=== PATIENT | female | born 1980 | race Caucasian/White ===

== ENCOUNTER → 2021-05-29 09:19 | Outpatient (CLI) | payer OTHER, SELFPAY ==
--- NOTE | 2021-05-29 09:26 | RAD_ITS ---
STUDY: X-RAY - ABDOMEN/PELVIS REASON FOR EXAM: Female, 40 years old. KUB- KIDNEY STONES TECHNIQUE: KUB COMPARISON: None. FINDINGS: Normal visualized lung bases. There is an unremarkable bowel gas pattern. There is no demonstrated free abdominal air. The visualized liver, spleen and kidneys are grossly normal in size and morphology. There is a large calcification in left upper quadrant consistent with renal stone. There is a small 1 the right upper quadrant possibly within the kidney or proximal ureter. There are also multiple pelvic calcifications bilaterally likely representing phleboliths although distal ureteral calculus cannot entirely excluded Postoperative changes in the pelvis likely due to prior tubal ligation. Lumbar spine demonstrates mild scoliosis and degenerative change. RAD/Abdomen Single View IMPRESSION: Left renal calculus. Question right renal or proximal ureteral calculus. If patient is experiencing renal colic ultrasound or CT recommended for further evaluation Electronically Signed: Charly Fletcher MD at 16:51 EDT , Service support ,
== END ==
PROVIDERS: PCP Family Medicine; Referring Provider Urology; Visit Provider Urology
DX: N20.0 Calculus of kidney (principal)
CPT/HCPCS: 74018

== ENCOUNTER 2021-06-17 11:52 | Day surgery (SDC) | payer OTHER, SELFPAY ==
[2021-06-17] VITALS (14 sets, daily range): BP systolic 114–146; BP diastolic 67–87; PULSE 64–83; RESP 14–16; TEMP 36–36.6; O2SAT 99–100; BMI 31.4
[2021-06-17] MEDS: Lactated Ringers 1,000 ML 15 ML IV (12:00)
[2021-06-17 12:39] LABS: Hematocrit 36.4 % (37-47); Mean Corpuscular Hgb 29.6 pg (27.0-32.0); Mean Corpuscular Volume 89.7 fL (81-99); Platelet Count 168 K/mm3 (150-450); RBC Distribution Width SD 42.7 fl (35.1-43.9); Red Blood Count 4.06 M/mm3 (4.2-5.4)
[2021-06-17 12:41] LABS: Internal QC Validated? YES +Cl - CLEAR BKGD; Pregnancy, Urine Negative Negative
[2021-06-17 12:51] LABS: Anion Gap 4 (5-15); BUN 9 mg/dL (7-18); BUN/Creat Ratio 11.9 RATIO (10-20); Calcium,Total 9.1 mg/dL (8.5-10.1); Chloride 111 mmol/L (98-107); Creatinine, Serum 0.76 mg/dL (0.55-1.02); EST Glomerular Filtration Rate 90 mL/min (>60); Est Glom Filt Rate - Afr Amer 109 mL/min (>60); Estimated Creatinine Clearance 93.04 ml/min; Glucose 83 mg/dL (74-106); Potassium 3.4 mmol/L (3.5-5.1); Sodium Level 140 mmol/L (136-145)
--- NOTE | 2021-06-17 13:40 | PCM.OPRPT ---
Problems Associated Problem List Diagnoses (1) Left renal stone: (2) Flank pain: Report of Operation Date of Procedure: 06/17/21 Pre-Operative Diagnosis: left renal stone, flank pain Post-Operative Diagnosis: same Surgery/Procedure Performed:: Cystoscopy, left ureteral stent insertion, left renal extracorporal shockwave lithotripsy Surgeon: Graciela Lawton Type of Anesthesia: General Specimen's removed: none Description of Procedure: The patient is a 40-year-old female has been having flank pain for some time. She underwent imaging and a large left renal stone was identified. She now presents for management with cystoscopy, ureteral stent insertion, and left renal extracorporal shockwave lithotripsy. Informed consent was obtained. The patient was taken the operating room and placed on the operating room table. Anesthesia monitored the head, neck, airway, IV access and vital signs throughout the case. Once anesthesia was appropriate ministered the patient was placed into dorsal lithotomy position was prepped and draped in usual sterile fashion. The cystoscope was inserted through the urethra under direct visualization into the urinary bladder. The bladder mucosa was visualized in its entirety and found to be without evidence of mass, erythema, lesion or foreign body. At this time the left ureteral orifice was intubated with a 0.035 Glidewire and access was obtained to the left renal pelvis. A 6 Portuguese 26 cm double-J stent was then placed with good curling achieved in the renal pelvis as well as the urinary bladder. Her bladder was then emptied, and the cystoscope was removed. The patient was positioned with the lithotripter and fluoroscopy. The stone was clearly identified and 3000 shocks were applied systematically. The stone appeared to be well fragmented at the conclusion of the case. The patient was then awakened and taken to the recovery room in good condition. There were no complications during this procedure. Grafts/Implants Used: 6 x 26 JJ stent Complications none Admit VTE Documentation VTE Present on Admission: Yes VTE Mechan Device Prophylaxis: SCD's VTE Pharm Prophylaxis ordered?: No Reason prophylaxis not ordered:: Treatment Not Indicated
--- NOTE | 2021-06-17 13:48 | PCM.DC ---
Discharge Instructions Diet Discharge Diet: No restrictions Activity Discharge Activity: Return to Normal Activity May resume sexual activity in: No Restrictions Dressing / Incision Call your doctor if you observe: Fever of 101 or Higher, Inability to urinate, Inability to have a bowel movement and Uncontrolled pain Follow Up Care Please Follow Up With: Graciela Lawton MD When: In the office in 2 to 3 weeks with a KUB first. Call for appointment Test Results: Test results from this visit will be discussed in further detail at your follow-up appointment, if applicable. Discharge Plan Admission Attending Provider: Graciela Lawton Primary Care Provider: Ron Mulligan Discharge Orders/Prescriptions Prescriptions: New oxycodone-acetaminophen [oxycodone-acetaminophen] 1 TABLET tablet 2 tab PO Q8H PRN PRN (Reason: Pain) 7 Days Qty: 20 RF: 0 cephalexin [cephalexin] 500 MG capsule 500 mg PO Q12 3 Days Qty: 6 RF: 0 phenazopyridine [Pyridium] 200 MG tablet 200 mg PO TID PRN PRN (Reason: Bladder Spasms) 7 Days Qty: 30 RF: 0 Continued lamotrigine [Lamictal] 150 mg Tablet 150 mg PO DAILY RF: 0 lamotrigine [Lamictal] 150 mg Tablet 300 mg PO QHS RF: 0 zonisamide 100 mg Capsule 100 mg PO QHS RF: 0 gabapentin [Neurontin] 300 mg Capsule 300 mg PO BID RF: 0 gabapentin [Neurontin] 300 mg Capsule 900 mg PO QHS RF: 0 folic acid 1 mg Tablet 1 mg PO DAILY RF: 0 topiramate 50 mg Tablet 50 mg PO BID RF: 0 Referrals / Follow Up: Ron Mulligan MD [Primary Care Provider] - Disposition Disposition (needs filled in before D/C Order can be placed): Home, Self Care
[2021-06-17] MEDS: Cefazolin 2 GM in 0.9% Normal Saline 100 ML IV (13:55)
== END 2021-06-17 19:00 | disposition home or self-care (01) ==
LOC: SDC 11:55 → AC 11:55
PROVIDERS: Anesthesiology; PCP Family Medicine; Referring Provider Urology; Visit Provider Urology
PROC: (CPT 50590; principal; 2021-06-17 14:10)
DX: N20.0 Calculus of kidney (principal); E66.9 Obesity, unspecified; Z68.36 Body mass index [BMI] 36.0-36.9, adult; G43.909 Migraine, unspecified, not intractable, without status migrainosus; G40.909 Epilepsy, unspecified, not intractable, without status epilepticus; Z87.442 Personal history of urinary calculi; Z79.899 Other long term (current) drug therapy
CPT/HCPCS: 00873; 50590; 52332; 80048; 81025; 85027; 87426; J7120; C2617; J2405

== ENCOUNTER → 2021-07-03 15:16 | Outpatient (CLI) | payer OTHER, SELFPAY ==
--- NOTE | 2021-07-03 15:19 | RAD_ITS ---
STUDY: X-RAY - ABDOMEN/PELVIS REASON FOR EXAM: Female, 40 years old. KIDNEY CALC TECHNIQUE: 2 frontal images of the abdomen were obtained. COMPARISON: 05/29/2021 FINDINGS: Normal visualized lung bases. There is an unremarkable bowel gas pattern. There is no demonstrated free abdominal air. There is a new left ureteral catheter in place. There are calcific densities within the expected region of the left kidney measuring up to 12.3 mm. There are calcified phleboliths in the pelvis. There are tubal ligation clips in place. There is a stable rounded density projecting over the lower pelvis may reflect a vaginal ring. Normal visualized osseous structures. RAD/Abdomen Single View IMPRESSION: Left renal calculi measuring up to 12.3 mm. Electronically Signed: Deneen Galvez MD at 16:35 EST Tel , Service support ,
== END ==
PROVIDERS: PCP Family Medicine; Referring Provider Urology; Visit Provider Urology
DX: N20.0 Calculus of kidney (principal)
CPT/HCPCS: 74018

== ENCOUNTER → 2021-07-23 15:41 | Outpatient (CLI) | payer OTHER, SELFPAY ==
--- NOTE | 2021-07-23 15:45 | RAD_ITS ---
EXAM: XR ABDOMEN, 1 VIEW CLINICAL INDICATION: KUB- KIDNEY STONES TECHNIQUE: Frontal supine view of the abdomen/pelvis. This report was created using [employer] report generation technology. COMPARISON: 07/03/2021 exam. FINDINGS: LOWER THORAX: Lung bases are clear. GASTROINTESTINAL TRACT: Normal bowel gas pattern. Non-obstructive. No bowel or stomach distention. ORGANS: Unremarkable as visualized. No organomegaly. No abnormal calcifications. BONES/JOINTS: No suspicious lytic or sclerotic lesions of bone. SOFT TISSUES: No acute pathology. VASCULATURE: Multiple phleboliths in the pelvis pelvis. TUBES, LINES AND DEVICES: Unchanged left ureteral stent this is incompletely imaged. OTHER FINDINGS: Bilateral tubal ligation. RAD/Abdomen Single View IMPRESSION: 1. No acute disease or bowel obstruction. 2. Stool and gas within colon. 3. Left double-J ureteral stent in place. Electronically Signed: Mike Meza MD at 0:41 EST Tel , Service support ,
== END ==
PROVIDERS: PCP Family Medicine; Referring Provider Urology; Visit Provider Urology
DX: N20.0 Calculus of kidney (principal)
CPT/HCPCS: 74018

== ENCOUNTER 2021-08-06 10:56 | Inpatient (IN) | payer OTHER, SELFPAY ==
[2021-08-06 10:57] VITALS: BP 130/65; PULSE 69; RESP 16; TEMP 36; O2SAT 100; BMI 34.3
--- NOTE | 2021-08-06 11:57 | EDS_ITS ---
HPI History of Present Illness Chief Complaint: Flank Pain Narrative Narrative: Patient presents to the emergency department with abdominal pain and pain. She has a ureteral stent for the last few weeks and it is becoming more painful. She called her urologist who told her to come to the ED. No fever or chills. She denies any new urinary symptoms. [facility] Medical History (Updated 08/06/21 @ 12:[address] Prince Garcia MD) Flank pain Left renal stone Non-smoker Seizures Wears glasses Home Medications folic acid 1 mg PO DAILY 05/31/21 [History Last Taken Unknown] gabapentin [Neurontin] 300 mg PO BID 05/31/21 [History Last Taken 06/17/21] gabapentin [Neurontin] 900 mg PO QHS 05/31/21 [History Last Taken Unknown] lamotrigine [Lamictal] 150 mg PO DAILY 05/31/21 [History Last Taken 06/17/21] lamotrigine [Lamictal] 300 mg PO QHS 05/31/21 [History Last Taken Unknown] topiramate 50 mg PO BID 05/31/21 [History Last Taken 06/17/21] zonisamide 100 mg PO QHS 05/31/21 [History Last Taken Unknown] cephalexin 500 mg PO Q12 3 Days #6 capsule 06/17/21 [Rx Last Taken Unknown] oxycodone-acetaminophen 2 tab PO Q8H PRN PRN 7 Days #20 tab 06/17/21 [Rx Last Taken Unknown] phenazopyridine [Pyridium] 200 mg PO TID PRN PRN 7 Days #30 tab 06/17/21 [Rx Last Taken Unknown] Allergy/AdvReac Type Severity Reaction Status Date / Time No Known Allergies Allergy Verified 08/06/21 10:59 Surgical History (System 06/03/21 @ 13:51 by Martinez Wei) History of Hx of brain surgery Social History (System 06/03/21 @ 13:51 by Martinez Wei) Smoking Status: Never smoker ROS ROS ED ROS Narrative Past medical history: Reviewed Medications: Reviewed Social history: Noncontributory Review of systems: All systems negative except as indicated General: No fever Eyes: No visual changes ENT: No upper airway congestion, normal voice Neck: No neck pain Cardiovascular: No chest pain Respiratory: No shortness of breath or cough Gastrointestinal: As in HPI Genitourinary: As in HPI Musculoskeletal: Denies myalgias no difficulty with ambulation Skin: No rash Neurological: No memory loss, confusion or any focal weakness Psych: No recent behavioral changes Hematologic: No easy bleeding or easy bruising EXAM Physical Exam Narrative Exam Narrative: Physical exam General: Well nourished, Well developed, No Acute Distress Head: Normocephalic, Atraumatic Neck: Supple, Nontender, No lymphadenopathy Cardiovascular: Regular rate, Regular rhythm Respiratory: No distress, CTA bilaterally Abdomen: Soft, some suprapubic pain : Deferred Back: Nontender, Normal Inspection. Negative for: CVA tenderness Extremities: Nontender, No edema Skin: Normal color, No rash Neurological: Alert, Normal Strength, Normal Sensation Psychological: Normal affect Const Vital Signs: 08/06/21 10:57 Temperature 96.8 F L Temperature Source Temporal Pulse Rate 69 Respiratory Rate 16 Blood Pressure 130/65 H Blood Pressure Mean 86 Pulse Ox 100 Oxygen Delivery Method Room Air MDM MDM MDM Narrative Medical decision making narrative: Patient's work-up, she is given IV fluids. I discussed with urology for admission. Discharge Plan Triage Chief Complaint: Flank Pain ED Provider: Prince Garcia Dx/Rx/DC Orders Clinical Impression: Left renal stone, Flank pain Prescriptions: No Action lamotrigine [Lamictal] 150 mg Tablet 150 mg PO DAILY RF: 0 lamotrigine [Lamictal] 150 mg Tablet 300 mg PO QHS RF: 0 zonisamide 100 mg Capsule 100 mg PO QHS RF: 0 gabapentin [Neurontin] 300 mg Capsule 300 mg PO BID RF: 0 gabapentin [Neurontin] 300 mg Capsule 900 mg PO QHS RF: 0 folic acid 1 mg Tablet 1 mg PO DAILY RF: 0 topiramate 50 mg Tablet 50 mg PO BID RF: 0 oxycodone-acetaminophen [oxycodone-acetaminophen] 1 TABLET tablet 2 tab PO Q8H PRN PRN (Reason: Pain) 7 Days Qty: 20 RF: 0 cephalexin [cephalexin] 500 MG capsule 500 mg PO Q12 3 Days Qty: 6 RF: 0 phenazopyridine [Pyridium] 200 MG tablet 200 mg PO TID PRN PRN (Reason: Bladder Spasms) 7 Days Qty: 30 RF: 0 Primary Care Provider: Ron Mulligan Referrals: Ron Mulligan MD [Primary Care Provider] - Disposition Disposition: Acute Care Hospital [facility]
[2021-08-06 12:19] LABS: Bacteria 0 SEEN /hpf (None Seen); Mucous, Urine 0 SEEN /hpf (<or=2+)
[2021-08-06 12:23] LABS: Color, Urine Amber (Yellow); Glucose, Dipstick Normal (Normal); Ketone-Dipstick 15 mg/dl (Negative); Leukocyte Esterase-Dipstick 100 /ul (Negative); Nitrite-Dipstick Negative (Negative); Occult Blood-Urine 250 /ul (Negative); Protein-Dipstick 100 mg/dl (Negative); Specific Gravity, Urine 1.015 (1.002-1.030); Urine Bilirubin Dipstick Negative (Negative); Urine Clarity Cloudy (Clear); Urine Urobilinogen Normal (Normal)
[2021-08-06] MEDS: 0.9% Normal Saline 1,000 ML 1000 ML IV (12:27)
[2021-08-06 12:31] LABS: Absolute Lymphocyte Count 2.21 X10^3/uL (0.83-4.51); Absolute Neutrophil Count 4.4 X10^3/uL (2.0-7.7); Basophil# 0.07 X10^3/uL; Eosinophil# 0.15 X10^3/uL; Eosinophils% 2.1 % (0-5); Hematocrit 36.6 % (37-47); Hemoglobin 11.8 g/dL (12.0-15.0); Lymphocyte # 2.21 X10^3/ul (0.83-4.51); Lymphocyte % 30.3 % (19-41); Mean Corp Hgb Conc 32.2 g/dL (32-36); Mean Corpuscular Hgb 29.6 pg (27.0-32.0); Mean Corpuscular Volume 91.7 fL (81-99); Mean Platelet Vol. 10.6 fl (6.2-12.0); Monocyte# 0.45 X10^3/uL; Monocyte% 6.2 % (0-10); NRBC Flagged by Analyzer 0 % (0-5); Neutrophil # 4.39 X10^3/uL (2.7-7.7); Platelet Count 228 K/mm3 (150-450); RBC Distribution Width CV 13.2 % (11.6-14.6); Red Blood Count 3.99 M/mm3 (4.2-5.4); White Blood Count 7.3 K/mm3 (4.4-11.0)
[2021-08-06 12:32] LABS: Red Blood Cells-Urine 50-100 SEEN /hpf (0-5); Squamous Epithelial Cells - UA 0-5 SEEN /hpf (5-10); White Blood Cells 10-25 SEEN /hpf (0-5)
[2021-08-06 12:45] LABS: ALB/GLOB Ratio 1.1 RATIO (0.9-2.4); AST(SGOT) 19 U/L (15-37); Alanine Aminotransfer ALT/SGPT 45 U/L (13-56); Albumin, Serum 3.9 g/dL (3.2-5.0); Alkaline Phosphatase 63 U/L (45-117); Anion Gap 5 (5-15); BUN 10 mg/dL (7-18); BUN/Creat Ratio 13.6 RATIO (10-20); Calcium,Total 8.6 mg/dL (8.5-10.1); Chloride 112 mmol/L (98-107); Creatinine, Serum 0.73 mg/dL (0.55-1.02); EST Glomerular Filtration Rate 93 mL/min (>60); Est Glom Filt Rate - Afr Amer 113 mL/min (>60); Estimated Creatinine Clearance 89.35 ml/min; Globulin 3.6 g/dL (2.2-4.2); Glucose 84 mg/dL (74-106); Potassium 3.4 mmol/L (3.5-5.1); Protein, Total 7.5 g/dL (6.4-8.2); Sodium Level 143 mmol/L (136-145)
--- NOTE | 2021-08-06 13:15 | NURSING ---
MED SURG OBS KAYLI UTI, KIDNEY STONE
[2021-08-06] MEDS: Ceftriaxone 1 GM/50 ML BAG IV (13:37)
[2021-08-06 13:41] VITALS: BP 114/79; PULSE 71; RESP 18; TEMP 36.4; O2SAT 95
[2021-08-06 15:09] VITALS: BMI 30.7
[2021-08-06] MEDS: Lactated Ringers 1,000 ML 100 ML IV (15:29)
[2021-08-06] MEDS: Ketorolac 30 MG/ML Syringe IV ×2 (15:31→22:27)
--- NOTE | 2021-08-06 18:13 | PCM.HP.STD ---
HPI - General General Date of Admission: 08/06/21 HPI Narrative RICHARD SUÁREZ, is a 40 F who presents with uncontrolled lower abdominal and left flank pain associated with her left ureteral stent and renal stones. She is in the process of being scheduled for surgical intervention and could not make it to the surgery date. Not eating or drinking much at home. Denies fever, chills, vomiting. Reports that her most significant symptoms are uncontrolled left lower abdominal pain. She feels that she cannot function at home secondary to the severity of her pain. She has also had gross hematuria and bladder pain. She denies dysuria. Voiding small amounts frequently. [facility] Medical History Flank pain Kidney stones Left renal stone Non-smoker Seizures Wears glasses Home Medications folic acid 1 mg PO DAILY 05/31/21 [History Last Taken 08/06/21] gabapentin [Neurontin] 300 mg PO DAILY 05/31/21 [History Last Taken 08/05/21] gabapentin [Neurontin] 900 mg PO QHS 05/31/21 [History Last Taken 08/05/21] lamotrigine [Lamictal] 150 mg PO DAILY 05/31/21 [History Last Taken 08/06/21] lamotrigine [Lamictal] 300 mg PO QHS 05/31/21 [History Last Taken 08/05/21] topiramate 50 mg PO BID 05/31/21 [History Last Taken 08/06/21] zonisamide 100 mg PO QHS 05/31/21 [History Last Taken 08/05/21] oxycodone-acetaminophen 2 tab PO Q8H PRN PRN 7 Days #20 tab 06/17/21 [Rx Last Taken 08/05/21] gabapentin 600 mg PO DAILY 08/06/21 [History Last Taken 08/06/21] Allergy/AdvReac Type Severity Reaction Status Date / Time No Known Allergies Allergy Verified 08/06/21 10:59 Surgical History History of Hx of brain surgery Social History Smoking Status: Never smoker ROS ROS Narrative Reports feeling much better now that her pain is controlled. Still having bladder pressure and bladder pain. Constitutional Constitutional: Reports poor appetite; Denies chills, fever(s) or night sweats Eyes Eyes: Reports systems reviewed and no addt'l complaints, except as documented ENT HEENT: Reports systems reviewed and no addt'l complaints, except as documented Cardiovascular Cardiovascular: Reports systems reviewed and no addt'l complaints, except as documented Respiratory/Chest Respiratory/Chest: Reports systems reviewed and no addt'l complaints, except as documented Gastrointestinal Gastrointestinal: Reports abdominal pain, cramping and nausea; Denies taste impaired or vomiting Genitourinary Genitourinary: Reports abdominal discomfort, flank pain, hematuria, low back pain, polyuria, urinary frequency and urinary urgency; Denies burning urination or dysuria Musculoskeletal Musculoskeletal: Reports systems reviewed and no addt'l complaints, except as documented Integumentary Integumentary: Reports systems reviewed and no addt'l complaints, except as documented Neurologic Neurologic: Reports systems reviewed and no addt'l complaints, except as documented and seizures Psychiatric Psychiatric: Reports systems reviewed and no addt'l complaints, except as documented Endocrine Endocrinology: Reports systems reviewed and no addt'l complaints, except as documented Hematologic/Lymphatic Hematologic/Lymphatic: Reports systems reviewed and no addt'l complaints, except as documented Allergic/Immunologic Allergic/Immunologic: Reports systems reviewed and no addt'l complaints, except as documented Vital Signs Vital Signs Vital Signs: 08/06/21 10:57 08/06/21 12:26 08/06/21 13:41 Temperature 96.8 F L 97.5 F L Temperature Source Temporal Oral Pulse Rate 69 71 Respiratory Rate 16 18 Respiratory Pattern Normal Blood Pressure 130/65 H 114/79 Blood Pressure Mean 86 90 Pulse Ox 100 95 Oxygen Delivery Method Room Air Room Air 08/06/21 15:41 Temperature Temperature Source Pulse Rate Respiratory Rate Respiratory Pattern Blood Pressure Blood Pressure Mean Pulse Ox Oxygen Delivery Method Room Air Weight Weight: 83.6 kg Body Mass Index (BMI) 30.7 Physical Exam Narrative She is tired in appearance, taking extra time to think about her answers, consistent with narcotic administration. Const alert, oriented x3, no apparent distress and healthy appearing General Appearance: cooperative, comfortable and well kempt Orientation / Consciousness: awake and oriented to person Exam Limitations: no limitations HEENT normocephalic, head/scalp atraumatic, hearing grossly normal bilaterally, external ears normal, external nose normal and moist oral mucous membranes Face and Sinus: face symmetric Mouth: lips normal and tongue normal Eyes General Eye: normal appearance of both eyes Neck supple General: trachea midline Chest inspection of chest normal Chest: symmetrical chest wall rise Resp normal respiratory effort, normal air movement and no retractions Effort and Inspection: able to speak in complete sentences and symmetric chest movement Cardio regular rate and regular rhythm GI soft to palpation and non-distended Palpation: soft and tender LLQ and suprapubic Bladder / Kidney Exam: CVA tenderness left Back/Spine General Back: CVA tenderness left Extremity normal to inspection Skin no rashes or lesions noted, no wounds, skin turgor normal, no jaundice, no petechiae and no mottling Neuro oriented x3, CN's II-XII intact bilaterally and moves all extremities Psych mental status grossly normal, thought process normal, cooperative and affect normal Results Medical Records Data Medical Nutrition Assessment Dietitian: Malnutrition Criteria Met Start: 08/06/21 17:20 Freq: Status: Active Protocol: Document 08/06/21 17:20 RMA (Rec: 08/06/21 17:20 RMA [id number]) Nutrition Malnutrition Evidence of Malnutrition Exists Yes Malnutrition (severe): Acute Illness/Injury Evidenced By Suboptimal Energy Intake ( Severe),Weight Loss (Severe) Clinical Problem Acute Disease or Injury Related Malnutrition Etiology Severe protein/calorie malnutrition in the context of acute illness related to decreased appetite/pain and inadequate oral intake Signs/Symptoms as evidenced by ~5% wt loss x past 1 month and inadequate oral intake meeting less than 50-75% estimated nutrition needs Status Active Problem Recommendation Dietitian Recommendations/Changes Continue regular diet; will add extra protein/meat with meals since pt refusing ONS at this time. ONS as needed if weight declines and/or PO established inadequate at meals. Lab / Micro Data Result Diagrams: 08/06/21 12:23 08/06/21 12:23 Labs: Laboratory Results - last 24 hr 08/06/21 12:14: Urine Color Jeanette, Urine Clarity Cloudy, Urine pH 7.0, Ur Specific [place] 1.015, Urine Protein 100 H, Urine Glucose (UA) Normal, Urine Ketones 15 H, Urine Occult Blood 250 H, Urine Nitrite Negative, Urine Bilirubin Negative, Urine Urobilinogen Normal, Ur Leukocyte Esterase 100 H, Urine RBC 50-100 SEEN, Urine WBC 10-25 SEEN, Ur Squamous Epith Cells 0-5 SEEN, Urine Bacteria 0 SEEN, Urine Mucus 0 SEEN 08/06/21 12:23: WBC 7.3, RBC 3.99 L, Hgb 11.8 L, Hct 36.6 L, MCV 91.7, MCH 29.6, MCHC 32.2, RDW Std Deviation 44.0 H, RDW Coeff of Tena 13.2, Plt Count 228, MPV 10.6, Immature Gran % (Auto) 0.400, Neut % (Auto) 60.0, Lymph % (Auto) 30.3, Fergus % (Auto) 6.2, Eos % (Auto) 2.1, Baso % (Auto) 1.0, Absolute Neuts (auto) 4.4, Absolute Lymphs (auto) 2.21, Nucleated RBC % 0 08/06/21 12:23: Sodium 143, Potassium 3.4 L, Chloride 112 H, Carbon Dioxide 26.0, Anion Gap 5, BUN 10, Creatinine 0.73, Estim Creat Clear Calc 89.35, Est GFR (MDRD) Af Amer 113, Est GFR (MDRD) Non-Af 93, BUN/Creatinine Ratio 13.6, Glucose 84, Calcium 8.6, Total Bilirubin 0.40, AST 19, ALT 45, Alkaline Phosphatase 63, Total Protein 7.5, Albumin 3.9, Globulin 3.6, Albumin/Globulin Ratio 1.1 Assessment & Plan Assessment/Plan (1) Flank pain: (2) Left renal stone: (3) Urinary tract infection: PLAN: Pain control. She has been unable to control her pain at home with oral medications. The patient's is refusing to take her home until she is managed here in the hospital with surgical intervention. Given the possibility of urinary tract infection superimposed on her uncontrolled pain, we will provide antibiotic coverage along with intravenous medication for pain control and plan for surgical intervention on . Add opioid and belladonna suppositories as the patient cannot tolerate Pyridium with her other medications.
[2021-08-06 18:31] VITALS: BP 130/82; PULSE 71; RESP 16; TEMP 36.4; O2SAT 100
[2021-08-06] MEDS: lamoTRIgine 150 MG Tablet 300 MG PO (19:58)
[2021-08-06] MEDS: Docusate Sodium 100 MG Capsule PO (19:58)
[2021-08-06] MEDS: Gabapentin 300 MG Capsule 900 MG PO (19:58)
[2021-08-06] MEDS: Topiramate 50 MG Tablet PO (19:58)
[2021-08-06] MEDS: Famotidine 20 MG Tablet PO (19:59)
[2021-08-06] MEDS: Zonisamide 50 MG Capsule 100 MG PO (20:04)
[2021-08-06 20:05] VITALS: BP 146/77; PULSE 69; RESP 18; TEMP 37.6; O2SAT 97
[2021-08-06] MEDS: Cefazolin 1 GM/50 ML BAG IV (22:21)
[2021-08-07] MEDS: Lactated Ringers 1,000 ML 100 ML IV ×2 (01:57→11:32)
[2021-08-07 01:59] VITALS: BP 115/67; PULSE 64; RESP 16; TEMP 36.7; O2SAT 97
[2021-08-07] MEDS: Ketorolac 30 MG/ML Syringe IV (05:44)
[2021-08-07] MEDS: Cefazolin 1 GM/50 ML BAG IV ×3 (05:47→21:44)
[2021-08-07] MEDS: lamoTRIgine 150 MG Tablet PO (05:49)
[2021-08-07] MEDS: Gabapentin 300 MG Capsule 600 MG PO (05:50)
[2021-08-07] MEDS: Topiramate 50 MG Tablet PO ×2 (05:50→17:08)
[2021-08-07] MEDS: Folic Acid 1 MG Tablet PO (08:44)
[2021-08-07] MEDS: Famotidine 20 MG Tablet PO ×2 (08:44→21:44)
[2021-08-07] MEDS: Docusate Sodium 100 MG Capsule PO ×2 (08:44→21:44)
[2021-08-07 08:49] VITALS: BP 141/89; PULSE 75; RESP 16; TEMP 36.6; O2SAT 98
--- NOTE | 2021-08-07 09:27 | NURSING ---
Patient reports taking seizure medications at home at 0530, 1200, 1730, adjusting times to prevent onset of seizure, patient reports if medications aren't taken within certain time frame.
--- NOTE | 2021-08-07 12:15 | CASEMGMT ---
RN TAVARES ARTIST MODEL CM to room to meet with patient for initial transition planning/care coordination assessment. RN TAVARES introduced self and role at [facility]. Pt voices understanding and consents to assessment at this time. Pt resting in bed in no distress at this time. Pt is A/O at this time and answers all questions appropriately. Care providers, pharmacy, and demographics verified/updated at this time. PCP: Dr Mulligan Specialists: Dr Lawton--urology. Sees neurologist @ [facility]--Dr Kathleen Abel Preferred Pharmacy: [facility] Retail Insurance:[employer] Prescription Benefit: Yes Living Will/HPOA: Pt does not currently have LW/HCPOA LNOK: , Mian Living Arrangements: Lives w/ and 5 children in 2-story home w/basement. Independent. Transportation: Hired drivers DME: Denies using any DME and denies needs. HHC/SNF: No hx of SNF. Has had HHC in the past after brain surgery. She does not remember name of agency. Pt wishes to return home and states has no concerns with going home at time of discharge. CM to follow for any discharge planning/needs. Pt voices no concerns/needs at this time. Advised pt to ask for CM if any questions/concerns/needs arise. Voices understanding. PLAN: Home w/family support and discharge plans in place. Tete MARTINEZ RN, CM
[2021-08-07] MEDS: Gabapentin 300 MG Capsule PO (14:38)
[2021-08-07 15:17] LABS: Internal QC Validated? YES +Cl - CLEAR BKGD; Pregnancy, Urine Negative Negative
--- NOTE | 2021-08-07 16:50 | CHAPLAIN ---
Type of Pastoral Visit _x__ Initial Visit ___ Follow-up Visit ___ On-call Visit ___ General Patient Visit ___ Spiritual Assessment ___ Family Conference ___ Bereavement ___ Rapid Response ___ Code Blue ___ Other (describe below) Pastoral Care Referral From _x__ Patient ___ Family ___ Nurse ___ Physician ___ Graphics Intern ___ Surgical Aide ___ Other (describe below) Sacrament/Intervention _x__ Active listening ___ Anointing ___ Voodoo ___ Bereavement ___ Communion ___ Ondina exploration ___ ___ Life review _x__ Prayer ___ Reconciliation ___ Sacrament of Sick _x__ Supportive presence ___ Wedding ___ Other (describe below) Pastoral Comments patient describes long time of pain and now has a surgery scheduled for tomorrow; pt looking forward to surgery and relief; pt asks for prayer for good outcome and for her family
[2021-08-07 17:00] VITALS: BP 132/78; PULSE 70; RESP 16; TEMP 36.6; O2SAT 99
[2021-08-07] MEDS: Gabapentin 300 MG Capsule 900 MG PO (17:08)
[2021-08-07] MEDS: Zonisamide 50 MG Capsule 100 MG PO (17:09)
[2021-08-07] MEDS: lamoTRIgine 150 MG Tablet 300 MG PO (17:10)
--- NOTE | 2021-08-07 17:26 | PCM.PN.GU ---
Subjective Subjective Sitting up in bed comfortably. No issues overnight. Significantly better than yesterday, the pain is controlled. Finished her dinner without difficulty. at bedside. We discussed in detail the plans for surgery for tomorrow. Their questions were answered. Objective Data Objective Data Vital Signs: Vital Signs Temp Pulse Resp BP Pulse Ox 97.9 F 70 16 132/78 H 99 08/07/21 17:00 08/07/21 17:00 08/07/21 17:00 08/07/21 17:00 08/07/21 17:00 Oxygen Delivery Method Room Air Weight: 83.6 kg Body Mass Index (BMI) 30.7 Intake & Output: Intake and Output for Last 24 Hours 08/05/21 08/06/21 08/07/21 23:59 23:59 23:59 Intake Total 1220 / 1820 3438.33 / 3438.33 Output Total 500 / 500 Balance 720 / 1320 3438.33 / 3438.33 Medical Nutrition Assessment Dietitian: Malnutrition Criteria Met Start: 08/06/21 17:20 Freq: Status: Active Protocol: Document 08/06/21 17:20 RMA (Rec: 08/06/21 17:20 RMA [id number]) Nutrition Malnutrition Evidence of Malnutrition Exists Yes Malnutrition (severe): Acute Illness/Injury Evidenced By Suboptimal Energy Intake ( Severe),Weight Loss (Severe) Clinical Problem Acute Disease or Injury Related Malnutrition Etiology Severe protein/calorie malnutrition in the context of acute illness related to decreased appetite/pain and inadequate oral intake Signs/Symptoms as evidenced by ~5% wt loss x past 1 month and inadequate oral intake meeting less than 50-75% estimated nutrition needs Status Active Problem Recommendation Dietitian Recommendations/Changes Continue regular diet; will add extra protein/meat with meals since pt refusing ONS at this time. ONS as needed if weight declines and/or PO established inadequate at meals. Lab / Micro Data Result Diagrams: 08/06/21 12:23 08/06/21 12:23 Labs: Laboratory Results - last 24 hr 08/06/21 12:14: Urine Test Negative Physical Exam Const alert, oriented x3 and no apparent distress Chest Chest: symmetrical chest wall rise Resp normal respiratory effort, normal air movement, no retractions and no use of accessory muscles Cardio regular rate and regular rhythm GI soft to palpation, non-tender and non-distended no CVA tenderness Extremity Extremity Narrative: SCDs in place bilaterally Skin no rashes or lesions noted, no wounds, skin turgor normal, no jaundice, no petechiae and no mottling Neuro oriented x3, CN's II-XII intact bilaterally and moves all extremities Psych mental status grossly normal and thought process normal Assessment & Plan Assessment/Plan (1) Urinary tract infection: (2) Flank pain: (3) Left renal stone: PLAN: Proceed with surgical intervention tomorrow with cystoscopy, left ureteroscopy, laser lithotripsy, left ureteral stent change To new antibiotics and supportive care
--- NOTE | 2021-08-07 18:15 | NURSING ---
Reviewed and agree with ARMANDO Deluna charting.
--- NOTE | 2021-08-07 19:27 | PCS.PANDOC ---
PANDEMIC DOCUMENTATION INITIATED: Date: 03/11/2021 Time: 1899 INITITATED 08/06 @ 1811
[2021-08-07 23:00] VITALS: BP 139/90; PULSE 65; RESP 18; TEMP 36.4; O2SAT 100
[2021-08-08] VITALS (11 sets, daily range): BP systolic 117–155; BP diastolic 61–97; PULSE 51–77; RESP 16–18; TEMP 35.8–36.8; O2SAT 98–100; BMI 30.7
--- NOTE | 2021-08-08 | CALC_PTH ---
PATIENT: RICHARD SUÁREZ LOC: MS2 U#:[id number] AGE/SX: 40/F ROOM: [id number] RE08/06/[address]: Dr. Graciela Lawton MD : 1980 BED: 1 DIS: 08/08/2021 SPEC #: [id number] RECD: 08/08/21 18:57 STATUS: RADHA CARUSO #: [id number] RAQUEL: 08/08/21 00:[address]: Graciela Lawton DEPT: SURGICAL PATHOLOGY RECD BY: Nav Dunham ENTERED: 08/09/21 08:09 SP TYPE: Calculi OTHR DR: Dr. Ron Mulligan MD Tissues: CALCULI Procedures: Surgery Specimen Level I HEADER OPERATION: Cysto, ureteroscopy, basket extraction, laser, stent change PRE-OP DIAGNOSIS: Left renal calculi TISSUE SUBMITTED: Left calculi for analysis GROSS DIAGNOSIS Fragments of stone, clinically left renal calculi. SJ:olivier 08/12/2021 COMMENT The calculus is submitted in its entirety for chemical stone analysis. The results from this study will be reported separately. GROSS DESCRIPTION Received without fixative labeled with the patient's name and designated left renal calculi. The specimen consists of multiple fragments of brownish stone mixed with blood measuring in aggregate 1 x 0.5 x 0.2 cm. The entire specimen is submitted for stone analysis. / BEATA:olivier 08/09/2021 CPT: 38856
[2021-08-08] MEDS: Lactated Ringers 1,000 ML 100 ML IV ×3 (00:17→17:45)
[2021-08-08] MEDS: Gabapentin 300 MG Capsule 600 MG PO (06:00)
[2021-08-08] MEDS: Cefazolin 1 GM/50 ML BAG IV ×2 (06:00→13:10)
[2021-08-08] MEDS: Topiramate 50 MG Tablet PO ×2 (06:00→20:27)
[2021-08-08] MEDS: lamoTRIgine 150 MG Tablet PO (06:00)
[2021-08-08 06:12] LABS: Partial Thromboplast Time 28.8 Seconds (24.1-36.2)
[2021-08-08] MEDS: Famotidine 20 MG Tablet PO (09:20)
[2021-08-08] MEDS: Folic Acid 1 MG Tablet PO (09:20)
[2021-08-08] MEDS: Gabapentin 300 MG Capsule PO (13:08)
[2021-08-08] MEDS: 0.9% Saline Lock 10 ML Syringe IV (13:08)
--- NOTE | 2021-08-08 15:07 | OP.PCM_ITS ---
Problems Associated Problem List Diagnoses (1) Left renal stone: Report of Operation Date of Procedure: 08/08/21 Pre-Operative Diagnosis: Left renal calculus Post-Operative Diagnosis: Same Surgery/Procedure Performed:: Cystoscopy, left ureteroscopy, homing laser lithotripsy, stone basket extraction, left ureteral stent change Surgeon: Graciela Lawton Type of Anesthesia: General Specimen's removed: stone fragments Description of Procedure: The patient is a 40-year-old female with an indwelling left ureteral stent status post extracorporal shockwave lithotripsy but now presents for removal via laser lithotripsy and stone basket extraction. Informed consent was obtained. The patient was taken the operating room placed in the operating room table. Anesthesia monitored the head, neck, airway, IV access and vital signs throughout the case. Once anesthesia was appropriate ministered the patient was placed into dorsolithotomy position was prepped and draped in usual sterile fashion. At this time the cystoscope was inserted through the urethra under direct visualization. A 0.035 Glidewire was passed alongside the stent which was removed with graspers. A second Glidewire was then placed alongside and used for safety wire. The flexible ureteroscope was used to ensure that there were no ureteral calculi identified. At this time a ureteral reaccessed sheath was easily advanced over the wire under fluoroscopic visualization. A safety wire remained alongside. The flexible ureteroscope and basket was then used to remove his many stone fragments as possible until visualization was no longer amenable to continuing. At this time the cystoscope was used to place a 6 Icelandic 24 cm JJ stent with good positioning in the renal pelvis as well as the urinary bladder. Patient's bladder was then emptied and the case was terminated. The patient was awakened and taken to the recovery room in good condition. There were no complications during this procedure. Grafts/Implants Used: 6x24 JJ stent Complications None Admit VTE Documentation VTE Present on Admission: Yes VTE Mechan Device Prophylaxis: SCD's VTE Pharm Prophylaxis ordered?: No Reason prophylaxis not ordered:: Treatment Not Indicated
--- NOTE | 2021-08-08 15:08 | PCM.DC ---
Discharge Instructions Diet Discharge Diet: No restrictions Activity Discharge Activity: Return to Normal Activity May resume sexual activity in: No Restrictions Dressing / Incision Call your doctor if you observe: Fever of 101 or Higher, Inability to urinate, Inability to have a bowel movement and Uncontrolled pain Follow Up Care Please Follow Up With: Graciela Lawton MD When: Call the office for appointment week for stent removal Test Results: Test results from this visit will be discussed in further detail at your follow-up appointment, if applicable. Discharge Plan Admission Admit Date/Time: 08/06/21 15:08 Attending Provider: Graciela Lawton Primary Care Provider: Ron Mulligan Discharge Orders/Prescriptions Prescriptions: New oxycodone-acetaminophen [oxycodone-acetaminophen] 1 TABLET tablet 2 tab PO Q8H PRN PRN (Reason: Pain) 7 Days Qty: 20 RF: 0 cephalexin [cephalexin] 500 MG capsule 500 mg PO Q12 3 Days Qty: 6 RF: 0 phenazopyridine [Pyridium] 200 MG tablet 200 mg PO TID PRN PRN (Reason: Bladder Spasms) 7 Days Qty: 30 RF: 0 Continued lamotrigine [Lamictal] 150 mg Tablet 150 mg PO DAILY RF: 0 lamotrigine [Lamictal] 150 mg Tablet 300 mg PO QHS RF: 0 zonisamide 100 mg Capsule 100 mg PO QHS RF: 0 gabapentin [Neurontin] 300 mg Capsule 300 mg PO DAILY RF: 0 gabapentin [Neurontin] 300 mg Capsule 900 mg PO QHS RF: 0 folic acid 1 mg Tablet 1 mg PO DAILY RF: 0 topiramate 50 mg Tablet 50 mg PO BID RF: 0 oxycodone-acetaminophen 1 TABLET tablet 2 tab PO Q8H PRN PRN (Reason: Pain) 7 Days Qty: 20 RF: 0 gabapentin 300 mg capsule 600 mg PO DAILY RF: 0 Referrals / Follow Up: Ron Mulligan MD [Primary Care Provider] - Disposition Disposition (needs filled in before D/C Order can be placed): Home, Self Care
[2021-08-08] MEDS: Zonisamide 50 MG Capsule 100 MG PO (20:27)
[2021-08-08] MEDS: Gabapentin 300 MG Capsule 900 MG PO (20:31)
[2021-08-08] MEDS: lamoTRIgine 150 MG Tablet 300 MG PO (20:32)
[2021-08-08] MEDS: oxyCODONE 5 MG Tablet 10 MG PO (21:10)
[2021-08-16 14:16] LABS: Source Not Provided
== END 2021-08-08 22:30 | disposition home or self-care (01) | DRG 694 ==
LOC: ED 12:19 → MS2 16:10
PROVIDERS: Anesthesiology; Admitting Provider Urology; Emergency Provider Emergency Medicine; PCP Family Medicine; Visit Provider Urology
PROC: 0TJ98ZZ Inspection of Ureter, Via Natural or Artificial Opening Endoscopic (ICD-10-PCS; CPT 52352; principal; 2021-08-08 16:10)
DX: N20.0 Calculus of kidney (principal); N39.0 Urinary tract infection, site not specified; Z87.442 Personal history of urinary calculi
CPT/HCPCS: 36415; 76000; 80053; 81001; 81025; 82360; 85025; 85730; 87086; 87088; 87426; 88300; 97802; 99283; J7030; J7050; J7120; A4216; C2617; J2405

== ENCOUNTER 2021-08-15 09:09 | Outpatient (CLI) | payer OTHER, SELFPAY ==
--- NOTE | 2021-08-15 09:11 | RAD_ITS ---
STUDY: X-RAY - ABDOMEN/PELVIS REASON FOR EXAM: Female, 41 years old. KIDNEY STONES TECHNIQUE: Single AP view of the abdomen / pelvis. COMPARISON: Comparison is made with prior study dated 07/23/2021. FINDINGS: There is a moderate amount of colonic fecal material. A left-sided double-J stent catheter is seen. The proximal tip is in the left renal pelvis and distal tip in the left side of the bladder. Faint residual calcifications are seen overlying the lower pole calyx of the left kidney. There are calcified phleboliths in the pelvis. Tubal ligation clips are seen in the pelvis. A pessary device is seen as well. Normal visualized osseous structures. RAD/Abdomen Single View IMPRESSION: Stable appearance of the left double-J stent catheter. Mild residual calcifications are seen in the lower pole calyx of the left kidney. Electronically Signed: Godwin Ruiz MD at 11:50 EST , Service support ,
== END 2021-08-15 23:59 | disposition short-term general hospital (02) ==
LOC: MTRAD 09:09
PROVIDERS: PCP Family Medicine; Referring Provider Urology; Visit Provider Urology
DX: N20.0 Calculus of kidney (principal)
CPT/HCPCS: 74018